=== PATIENT | male | born 1950 | race Caucasian/White ===

== ENCOUNTER 2022-05-25 05:35 | Day surgery (SDC) | payer OTHER ==
[~2022-05-25] VITALS: Ht 170.2 cm; Wt 68.5 kg
[2022-05-25] MEDS ORDERED: CEFAZOLIN SOD 2 GM in D5W 50 ML IV ONE (06:15)
[2022-05-25] MEDS ORDERED: METOCLOPRAMIDE HCL 10 MG/2 ML VIAL IVP PRN (09:00)
[2022-05-25] MEDS ORDERED: ONDANSETRON HCL 4 MG/2 ML VIAL IVP PRN (09:00)
[2022-05-25] MEDS ORDERED: IBUPROFEN 600 MG TABLET PO ONE (09:00)
[2022-05-25] MEDS ORDERED: MEPERIDINE HCL/PF 25 MG/ML DISP.SYRIN IVP PRN (09:00)
[2022-05-25] MEDS ORDERED: HYDROmorphone 1 MG/ML INJ. CARTRIDGE IVP PRN (09:00)
[2022-05-25] MEDS ORDERED: BUPIVACAINE /EPINEPHRINE/PF 0.5% 30 ML VIAL INJ ONE (09:50)
[2022-05-25] MEDS ORDERED: INDOCYANINE GREEN 25 MG VIAL ONE (09:50)
[2022-05-25] MEDS ORDERED: GLYCOPYRROLATE 0.2 MG/ML VIAL ONE (09:50)
[2022-05-25] MEDS ORDERED: LR 1,000 ML IV.SOLN IV ONE (09:50)
[2022-05-25] MEDS ORDERED: NEOSTIGMINE METHYLSULFATE 1 MG/ML, 10 ML VIAL ONE (09:50)
[2022-05-25] MEDS ORDERED: ROCURONIUM BROMIDE 10 MG/ML (ZEMURON) ONE (09:50)
[2022-05-25] MEDS ORDERED: NS 1000 ML IV.SOLN IV ONE (09:50)
[2022-05-25] MEDS ORDERED: SUCCINYLCHOLINE CHLORIDE 20 MG/ML(QUELICIN) ONE (09:50)
[2022-05-25] MEDS ORDERED: NS IRRIG SOLN 1000 ML IR ONE (09:50)
[2022-05-25] MEDS ORDERED: SEVOFLURANE 15 MIN GAS INH ONE (09:50)
[2022-05-25] MEDS ORDERED: ONDANSETRON HCL 4 MG/2 ML VIAL ONE (09:50)
[2022-05-25] MEDS ORDERED: PROPOFOL 200MG/ 20ML VIAL (DIPRIVAN) IV ONE (09:50)
[2022-05-25] MEDS ORDERED: HYDROmorphone 1 MG/ML INJ. CARTRIDGE ONE (10:06)
[2022-05-25] MEDS ORDERED: traMADol HCL HCL 50 MG TABLET (ULTRAM) PO PRN (10:15)
[2022-05-25 13:18] VITALS: BP_SYST 119
== END 2022-05-25 13:20 | disposition home or self-care (01) ==
LOC: SMU 05:35 → SDS 05:35
PROVIDERS: ATTEND Surgery
DX: K80.10 Calculus of gallbladder with chronic cholecystitis without obstruction (principal); E11.9 Type 2 diabetes mellitus without complications; E78.5 Hyperlipidemia, unspecified; Z95.5 Presence of coronary angioplasty implant and graft; Z79.899 Other long term (current) drug therapy; Z20.822 Contact with and (suspected) exposure to COVID-19
CPT/HCPCS: 36415 ×2; 47562; 82962; 88302; 88304; 87426; U0003; J3490 ×2; J0690; J2405; J2704; J0330; J1170; J7060; J7120; J7030; S2900; J2710; E0190